=== PATIENT | female | born 1965 | race Caucasian/White ===

== ENCOUNTER 2025-02-05 13:48 | Outpatient (AMB) | payer OTHER, SELFPAY ==
--- NOTE | 2025-02-05 13:49 | MHC.OFFVIS ---
Vital Signs 02/05/25 13:53 Height 5 ft 0.24 in Weight 194 lb BMI 37.6 BP 160/90 H Blood Pressure Location Lt brachial Position Sitting Pulse 67 Pulse Source Pulse Oximeter Pulse Oximetry (%) 97 Oxygen Delivery Method Room Air Intake Visit Reasons: osteoarthritis Intake Note: Patient presents for osteoarthritis Allergies lidocaine Allergy (Intermediate, Verified 02/05/25 13:58) sees white novacain Allergy (Mild, Uncoded 02/05/25 13:57) tachycardia HPI HPI osteoarthritis: Details: In November when she returned from [place], she had increase pain and swelling in hands and lower extremities. Toes were swollen. She saw PCP who orderd testing, which revealed elevated CRP 12 (n<10). heat and ice helped. She used celebrex and tylenol PRN. Resolved. She continues to have left knee pain. She does exercises at home regularly. 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 She has been experiencing chronic left shoulder pain. She is unable to flip pancakes because of left shoulder pain. She had an x-ray of her left shoulder ordered by PCP, which patient reveals calcific tendonitis. Pain has decreased in intensity. She has limited function due to limited range of motion in left shoulder. She takes Celebrex a few times a week. [facility] Medical History (Updated 02/06/25 @ 22:40 by Tyler Kumar MD) Fibromyalgia Calcifying tendinitis Surgical History (Updated 02/05/25 @ 14:00 by Shannon Prieto CMA) Status post repair of lateral meniscus radial tear of left knee Physical Exam Vital Signs: Last Vital Signs Pulse 67 02/05/25 13:53 BP 160/90 H 02/05/25 13:53 Pulse Ox 97 02/05/25 13:53 Oxygen Delivery Method Room Air 02/05/25 13:53 BMI result Body Mass Index 37.6 Const Other: General: Comfortable CVS: RRR Respiratory: clear to auscultation bilaterally. Good respiratory effort Skin: No lesions seen MSK: Tender to palpate left shoulder anteriorly, subacromial region and posteriorly. She has normal range of motion but with discomfort in left shoulder. Normal range of motion of right shoulder. No synovitis of any joints. Tender to palpate left knee along joint line. Crepitus present. Knee flexion 100 degrees left knee. Assessment & Plan Assessment & Plan (1) Osteoarthritis of left knee: Comment: Uncontrolled pain. Rheumatology history: Lidocaine allergy causing palpitations. She had therapeutic arthrocentesis 04/10/2021 with 40 mg Depo-Medrol only and aspiration of 25 cc of synovial fluid with benefit. Failed diclofenac. Naproxen, bracing and PT help. Meniscus repair April 2021. August 2021 diagnostic arthrocentesis white cell count 565 without crystals. October 2021 and November 2022 she had cortisone injection with 1 cc 2% procaine. On Celebrex PRN prescribed by PCP. Code(s): M17.12 - Unilateral primary osteoarthritis, left knee Category: Medical Plan: Nesacaine is being ordered at [facility]. As soon as it is available, patient will be scheduled for cortisone injection with Nesacaine. (2) Calcific tendinitis of left shoulder: Comment: Per patient report. Left shoulder pain is uncontrolled with full range of motion. Code(s): M75.32 - Calcific tendinitis of left shoulder Category: Medical Plan: She agreed to PT I recommend that she use Celebrex 200 mg twice a day scheduled for 2 weeks minimum rather than PRN few times a week X-ray report requested from PCP's office Orders: Orders PT Evaluation and Treatment 02/05/25 M75.32 - Calcific tendinitis of left shoulder Coding Level of Care Code Est Pt Level 4 (09095) Complex EM visit Add On G2211 Diagnoses Osteoarthritis of left knee M17.12 Calcific tendinitis of left shoulder M75.32
[2025-02-05 13:53] VITALS: BP 160/90; PULSE 67; O2SAT 97; BMI 37.6
--- OUTSIDE RECORDS SUMMARY | 2025-02-05 16:22 | XMS_ITS | Referral Summary ---
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 Eustachian tube dysfunction 11/14/2013 Tinnitus 11/14/2013 Allergic rhinitis 11/14/2013 Hyperglycemia 09/13/2013 Hip sprain 07/25/2013 Elevated blood pressure read ing without diagnosis of hypertension 06/05/2013 [address] - Driving (Not Motorcycle 05/22/2013 Myalgia and myositis 05/22/2013 Backache 05/22/2013 Lipoma of skin and subcutaneous tissue 3 Muscle spasm 05/14/2013 Spinal stenosis 05/14/2013 Limb pain 05/14/2013 Hypercholesterolemia 05/14/2013 Anxiety 05/14/2013 Hyperlipidemia 05/14/2013 Lumbago 05/14/2013 Obesity 02/07/2013 Nausea 02/06/2013 Abdominal pain, epigastric 02/06/2013 Abdominal pain of multiple sites 02/06/2013 Fibromyalgia 02/06/2013 Immunizations Immunization Administration Dates Next Due INFLUENZA, SPLIT VIRUS, TRIVALENT, PF 09/13/2013 ,07/03/2010 Pneumococcal Polysaccharide Vaccine, 23 Valent 0 02/07/2013 Tetanus Toxoid, Reduced Diph theria Toxoid, and Acellular Pertussis Vaccine, Adsorbed 02/07/2013 Tuberculin Skin Test; Clive ed Protein Derivative Solution, Intradermal 02/13/2014 Social History Tobacco Use Types Packs/Day Years Used Date Smoking Tobacco: Every Day Comments:: Comments Unknown Sex and Gender Information Value Date Recorded Sex Assigned at Female 08/31/2022 8:48 PM EST Legal Sex Female 12:12 AM EDT Gender Identity Female 08/31/2022 8:48 PM EST Sexual Orientation Straight 08/31/2022 8: 48 PM EST Last Filed Vital Signs Vital Sign Reading Time Taken Comments Blood Pressure 134/90 05/29/2014 4:50 PM EDT Pulse 70 02/13/2014 11:40 AM EDT Temperature 36.5 ??C (97.7 ??F) 02/13/2014 11:40 AM E DT Respiratory Rate - - Oxygen Saturation 98% 02/13/2014 11:40 AM EDT Inhaled Oxygen Concentration - - Weight 78 kg (172 lb) 03/07/2015 12:46 PM EDT Height 154.9 cm (5' 1 ) 03/07/2015 12:46 PM EDT Body Mass Index 32.5 03/07/2015 12:46 PM EDT Plan of Treatment Not on file Procedures * Due to [place] [employer] law, this organization might not be sharing negative HIV tests. Procedure Name Priority Date/Time Associated Diagnosis Comments PAP SMEAR Routine 06/20/2014 3:34 PM EDT MAMMOGRAPHY Routine 04/12/2012 10:55 AM EDT from Last 3 Months or Most Recently Relevant to Health Maintenance Results * Due to [place] [employer] law, this organization might not be sharing negative HIV tests. * PAP SMEAR (06/20/2014 3:34 PM EDT) HM Pap smear NEGATIVE OTHER 06/20/2014 3:34 PM EDT us Historical Conversion Provider HEALTH MAINTENANC E Final Result OTHER * MAMMOGRAPHY (04/12/2012 10:55 AM EDT) Mammogram NEGATIVE [facility] Anatomical Region Laterality Modality Other 04/12/2012 10:5 5 AM EDT Angela River MD HEALTH MAINTENANCE Final Resul t from Last 3 Months or Most Recently Relevant to Health Maintenance Insurance [facility] Care Teams Pinion And Wheel Truer Relationship Specialty Start Date End Date Paul [address] [place], [place] [id number] PCP - General Physician Category Director 08/03/22
== END 2025-02-05 14:49 | disposition home or self-care (01) ==
LOC: HO.RHES 13:48
PROVIDERS: PCP Internal Medicine; Visit Provider Internal Medicine Rheumatology
DX: M17.12 Unilateral primary osteoarthritis, left knee (principal); M75.32 Calcific tendinitis of left shoulder
CPT/HCPCS: 99214; G2211

== ENCOUNTER → 2025-02-05 13:48 | Outpatient (BNVA) | payer OTHER, SELFPAY | PROVIDERS: PCP Internal Medicine; Visit Provider Internal Medicine Rheumatology ==

== ENCOUNTER 2025-02-13 08:51 | Outpatient (AMB) | payer OTHER, SELFPAY ==
[2025-02-13 08:54] VITALS: BP 140/90; PULSE 77; O2SAT 98; BMI 37.3
--- NOTE | 2025-02-13 08:54 | A.OFFVIS_ITS ---
Vital Signs 02/13/25 08:54 Height 5 ft Weight 191 lb BMI 37.3 BP 140/90 H Blood Pressure Location Rt brachial Position Sitting Pulse 77 Pulse Source Pulse Oximeter Pulse Oximetry (%) 98 Oxygen Delivery Method Room Air Intake Visit Reasons: left knee cortisone injection Intake Note: Left knee cortisone injection Accompanied by: Self / Same As Patient Allergies lidocaine Allergy (Severe, Verified 02/13/25 09:14) sees white novacain Allergy (Mild, Uncoded 02/05/25 13:57) tachycardia HPI HPI left knee cortisone injection: Details: Pain is uncontrolled and left knee. Last cortisone injection was in 2020. [facility] Medical History Fibromyalgia Calcifying tendinitis Surgical History Status post repair of lateral meniscus radial tear of left knee Physical Exam Vital Signs: Last Vital Signs Pulse 77 02/13/25 08:54 BP 140/90 H 02/13/25 08:54 Pulse Ox 98 02/13/25 08:54 Oxygen Delivery Method Room Air 02/13/25 08:54 BMI result Body Mass Index 37.3 Const Other: General: Comfortable CVS: RRR Respiratory: clear to auscultation bilaterally. Good respiratory effort Skin: No lesions seen MSK: No synovitis of any joints. Tender to palpate left knee along joint line. Crepitus present. Knee flexion 100 degrees left knee. Office Procedures AMB Joint Injection/Aspiration Joint Injection/Aspiration Details: Left knee joint Prep: site was prepped using aseptic technique Injected: 40 mg of, Kenalog, with 1 mL of 2% Nesacaine Procedure: Informed verbal consent was obtained. The patient tolerated the procedure well. Postprocedure protocol was discussed with patient. Coding 01496 - Large joint Procedure code (CPT) selection complete Office Meds Kenalog 40 mg/mL suspension for injection Performing Provider: Tyler Kumar MD Performing Location: [facility] Rheumatology-[facility] Administered by: Tyler Kumar MD on 02/13/25 09:38 Dose Route Admin Location Dispensed Lot Number Expiration Date [facility] Strain Technician 40 mg intra-articular 1 mL [id number] 03/28/26 [address]-9 A [employer] Total Dispensed Waste 1 mL 0 % Assessment & Plan Assessment & Plan (1) Osteoarthritis of left knee: Comment: Uncontrolled pain. Rheumatology history: Lidocaine allergy causing palpitations. She had therapeutic arthrocentesis 04/10/2021 with 40 mg Depo-Medrol only and aspiration of 25 cc of synovial fluid with benefit. Failed diclofenac. Naproxen, bracing and PT help. Meniscus repair April 2021. August 2021 diagnostic arthrocentesis white cell count 565 without crystals. October 2021 and November 2022 she had cortisone injection with 1 cc 2% procaine. On Celebrex PRN prescribed by PCP. Code(s): M17.12 - Unilateral primary osteoarthritis, left knee Category: Medical Qualifiers: Osteoarthritis type: primary Qualified Code(s): M17.12 - Unilateral primary osteoarthritis, left knee Plan: Patient received cortisone injection with 2% nesacaine this visit (lidocaine allergy) Return to clinic in 3 months (2) Calcific tendinitis of left shoulder: Comment: Per patient report. Left shoulder pain has improved with regular use of Celebrex Code(s): M75.32 - Calcific tendinitis of left shoulder Category: Medical Plan: She agreed to PT for shoulder strengthening Continue Celebrex 200 mg b.i.d. PRN pain X-ray report requested from PCP's office x2 request Orders: Orders AMB Joint Injection/Aspiration Today M17.12 - Unilateral primary osteoarthritis, left knee Coding Level of Care Code Est Pt Level 4 (23314) Complex EM visit Add On G2211 Diagnoses Primary osteoarthritis of left knee M17.12 Osteoarthritis type: primary Calcific tendinitis of left shoulder M75.32 CPT Codes Coding - 21001 Large joint: 65691 - Large joint ([id number])
--- OUTSIDE RECORDS SUMMARY | 2025-02-13 09:24 | XMS_ITS | Referral Summary ---
Author Organization [facility] Address [address] [place] [address] Care Team Providers Care Seam Steamer Name Role Phone GianfrancojohnPaul kraft Primary Care Provider [phone] Allergies Active Allergy Reactions Criticality Noted Date [...] 70 02/13/2014 11:40 AM EDT Temperature 36.5 C (97.7 F) 02/13/2014 11:40 AM EDT Respiratory Rate - - Oxygen Saturation 98% 02/13/2014 11:40 AM EDT Inhaled Oxygen Concentration - - Weight 78 kg (172 lb) 03/07/2015 12:46 PM EDT Height 154.9 cm (5' 1 ) 03/07/2015 12:46 PM EDT Body Mass Index 32.5 03/07/2015 12:46 PM EDT Plan of Treatment Not on file Procedures * Due to [place] [employer] law, this organization might not be sharing negative HIV tests. Procedure Name Priority Date/Time Associated Diagnosis Comments PAP SMEAR Routine 06/20/2014 3:34 PM EDT MAMMOGRAPHY Routine 04/12/2012 10:55 AM EDT from Last 3 Months or Most Recently Relevant to Health Maintenance Results * Due to [place] [employer] law, this organization might not be sharing negative HIV tests. * PAP SMEAR (06/20/2014 3:34 PM EDT) Pap smear NEGATIVE OTHER 06/20/2014 3:34 PM EDT us Historical Conversion Provider HEALTH MAINTENANC E Final Result OTHER * MAMMOGRAPHY (04/12/2012 10:55 AM EDT) Mammogram NEGATIVE [facility] Anatomical Region Laterality Modality Other 04/12/2012 10:5 5 AM EDT Angela River MD HEALTH MAINTENANCE Final Resul t from Last 3 Months or Most Recently Relevant to Health Maintenance Insurance [facility] Care Teams Seam Steamer Relationship Specialty Start Date End Date Paul [address] [place], [place] [phone] PCP - General Physician Controls Operator Molded Goods 08/03/22
== END 2025-02-13 09:45 | disposition home or self-care (01) ==
LOC: HO.RHES 08:52
PROVIDERS: PCP Internal Medicine; Visit Provider Internal Medicine Rheumatology
DX: M75.32 Calcific tendinitis of left shoulder (principal); M17.12 Unilateral primary osteoarthritis, left knee
CPT/HCPCS: 20610; 99214

== ENCOUNTER → 2025-02-13 08:51 | Outpatient (BNVA) | payer OTHER, SELFPAY | PROVIDERS: PCP Internal Medicine; Visit Provider Internal Medicine Rheumatology | DX: M17.12 Unilateral primary osteoarthritis, left knee (principal); M75.32 Calcific tendinitis of left shoulder | CPT/HCPCS: 20610; J2401; J3300 ==

== ENCOUNTER 2025-05-09 11:17 | Outpatient (RCR) | payer OTHER, SELFPAY ==
--- NOTE | 2025-05-09 13:46 | MHC.PT.OD ---
[facility] [place] [facility] [place] [facility] [address] [address] Farheen Maria [address] [facility] [phone] F: [phone] F: [phone] F: [phone] Physical Therapy Daily Note Diagnosis: PT eval and treat; M75.32 Calcific tendinitis of left shoulder signed by Dr. Kumar 02/05/25 Date of Surgery: Date of Evaluation: 04/01/25 Date of Treatment: 05/09/25 Treatments to Date: 7 Cancellations to Date: No Shows to Date: Authorized Visits: Insurance End Date: Precautions/ Contraindications: Subjective: Christy arrives 20 minutes late for appt notes It hurt really bad last night but I didnt do the exercises Pain Score and Location: Objective Flowsheet: Tests & Measures see eval Exercises Pec stretch in doorway x 20 sec hold x 4R, AAROM flexion in supine x 10 sec hold with aide of opposite hand x 10 sec hold with wand x 5R, AAROM cane scaption with wand x 10 sec hold x 5R, SL trunk rotation modified open books due to L shoulder sx x 5R fwd/laterally each side, AAROM PWR! up and PWR twist x 5R each side to improve ROM, AAROM flexion with wand flexion and abduction x 2 set 5R x 10 sec hold, PWR up sit<>stand x 10R with thoracic extension in standing. Education re: goals of backing from bands as she has not been doing ROM exercises- first start wit that- then once pain reduced and flexibility improves will progress to band work Education re: need to do exercises to make gains, educated re: AAROM goals of stretching program first not focusing on strengthening activities, trying to make exercises part of the day and part of the routine Examples morning midday night how to work it in with specifics of reps/sets we completed in the office Sub-occipital release in effort to increase tissue extensibility, education for cervical rotation and cervical side-bending x 4R x 20 sec hold. Held taping this date. Self care HEP program integration into ADLS/IADLS, small amts that are attainable Modalities Deferred ice today Assessment: 05/09/25: Motivational and pep talk to encourage Christy that she can improve her symptoms IF she puts the time and effort into doing her exercises. Despite previous education, instruction, and written HEP sheets she states, Last night it was killing me but I didnt do any exercises. She presents late for her appt today, acknowledges external stressors and factors impacting her time. At start of session she was c/o sharp pain post session she verbalized feeling better post stretching/review of her HEP. We spent some time of breaking down how she can adapt and modify her behavior to allow for time to complete the necessary goals. She was advised to trial an I HEP for the next two weeks to allow her to assess her progress and after that can come back to work on advancement. She will be seeing Dr. Kumar on 05/21/25. She was educated in the goal of AAROM stretching program first and then progression of periscap/RTC/postural strengthening tasks. SHe was previously given bands to work on this but has not been doing. She was encouraged to ice her shoulder should sx she have pain in the evening. She was educated that her exercises should be within that painfree zone. Her AROM is functional and improving. She c/o muscular tightness of the left upper trap. [id number]: Christy is doing better, was challenged with resisted theraband *yellow.* She was trialed with some gentle sub-occipital release in effort to ease headache sx which she expressed was better post session. 05/03/25: Erythema response persists with HG IASTM to L UT HG #8 strumming response. We discussed benefit in postural stab/resisted exercises at home and frequent chest/pec stretching. Discussed AAROM wall slides vs neil for home option. Pt notes improvement in ROM, mm tension in LUT/scap persists. Verbalizes stress of being a caregiver and lack of making time for herself. Education spent re: ways to work HEP program into her routine to aide in completion. 04/30/25: Christy is doing better with respect of L shoulder sx, ongoing tight L UT. She notes ordering a theracane for home/self care management. Challenged L>R shoulder with YTB for ext>ER>rows. 04/26/25: Pt introduced to AAROM shoulder neil for shoulder flexion and abduction this date with good tolerance. Issued RTB for HEP program. Pt with erythema response for L UT musculature. 04/15/25: Christy presents to the office exhibiting antalgic gait (R LE), tenderness noted R medial achilles insertion, mild edema noted distal achlles/supra ankkle. Denies trauma states, I need to call my doctor can I pick your brain about this? Pt given some insight to sx, handout for achilles tendoniitis, relief with some stretches and education provided. Reports lack of compliance with HEP sheets for L shoulder, I lost the sheets. Pt encouraged to make time for herself/exercises. AAROM flexion and abduction improved since initial eval. Pt to call PCP to obtain script/ add on R achilles for treatment. 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 Kumar 02/05/25. Pt exhibits decreased range of motion, impaired strength, and decreased functional mobility, notes intolerance for sleeping on L side, wakes at night due to sx. PMH significant for L knee pain (hx meniscal surgery and fibromyalgia). Sometimes she is unable to don her bra due to sx of pain in her L shoulder. She notes sedentary activity in recent months, would like to establish a self care program of what she can do to ease her sx. Pt willing and eager to attend PT 2x/week x 4 weeks *has been taking celebrex at baseline for her knee pain. Pt notes just came back from trip to [place], shoulder and knee have been sore from all the walking. (Notes needing to use a scooter the last few days due to severity of knee pain). Presents to PT with no AD. PT Plan: Progress scapular stab, AAROM/ pain managment, postural stretching Add shoulder rows/ER/ext, postural strength periscap next session May benefit from NUSTEP for total body dynamic warmup Short Term Goals: 1. AAROM L shoulder flexion to 160. 2. AAROM L shoulder IR to midline L3. 3. AAROM L shoulder ER to C7. 4. Strength ER to 4/5 L shoulder. 5. Strength IR to 4/5 L shoulder 6. Strengthen triceps 4/5 L shoulder. Shift Commander Goals: 1. Demonstrate good carryover of HEP and self care management skills with program. 2. Strengthen L triceps 5/5. 3. L periscap 12/31. 4. Don clothing MOD I with sx <3/10 L shoulder. 5. AROM L shoulder functional with pain <3/10 all planes. 6. Improvement in SPADI score by 25%. Electronically signed by: Lida Pacheco PT, DPT
== END 2025-05-23 15:22 | disposition home or self-care (01) ==
LOC: HO.PTS 11:17
PROVIDERS: Visit Provider Internal Medicine Rheumatology
DX: M75.32 Calcific tendinitis of left shoulder (principal)
CPT/HCPCS: 97110; 97140; 97161; 97530

== ENCOUNTER 2025-05-21 08:26 | Outpatient (AMB) | payer OTHER, SELFPAY ==
[2025-05-21 08:30] VITALS: BP 130/80; PULSE 78; O2SAT 100; BMI 37.9
--- NOTE | 2025-05-21 08:30 | A.OFFVIS_ITS ---
Vital Signs 05/21/25 08:30 Height 5 ft Weight 194 lb 0.108 oz BMI 37.9 BP 130/80 Blood Pressure Location Lt brachial Position Sitting Pulse 78 Pulse Source Pulse Oximeter Pulse Oximetry (%) 100 Oxygen Delivery Method Room Air Intake Visit Reasons: 1 month Intake Note: Patient presents for osteoarthritis. Accompanied by: Self / Same As Patient Allergies lidocaine Allergy (Severe, Verified 05/21/25 08:34) sees white novacain Allergy (Mild, Uncoded 02/05/25 13:57) tachycardia HPI HPI 1 month: Details: Last cortisone injection lasted 2 weeks. Uses tylenol x2 with celebrex with benefit PRN. She uses Celebrex every other day. Celebrex is prescribed from PCP. She uses a knee brace as needed. She continues to remain as active as she can especially with her grandchildren. [facility] Medical History Fibromyalgia Calcifying tendinitis Surgical History Status post repair of lateral meniscus radial tear of left knee Physical Exam Vital Signs: Last Vital Signs Pulse 78 05/21/25 08:30 BP 130/80 05/21/25 08:30 Pulse Ox 100 05/21/25 08:30 Oxygen Delivery Method Room Air 05/21/25 08:30 BMI result Body Mass Index 37.9 Const Other: General: Comfortable Skin: No lesions seen MSK: No synovitis of any joints. Tender to palpate left knee along joint line with mild effusion. Crepitus present. Knee flexion 100 degrees left knee. Assessment & Plan Assessment & Plan (1) Osteoarthritis of left knee: Comment: Uncontrolled pain. We discussed options. She would like to try cortisone injection with Nesacaine medial approach. If benefit is not long lasting, I will then start PA process for Euflexxa. We need to order Nesacaine for patient. Rheumatology history: Lidocaine allergy causing palpitations. She had therapeutic arthrocentesis 04/10/2021 with 40 mg Depo-Medrol only and aspiration of 25 cc of synovial fluid with benefit. Failed diclofenac. Naproxen, bracing and PT help. Meniscus repair April 2021. August 2021 diagnostic arthrocentesis white cell count 565 without crystals. October 2021 and November 2022 she had cortisone injection with 1 cc 2% procaine. On Celebrex PRN prescribed by PCP. 01/2025 cortisone injection with 2% nesacaine. Code(s): M17.12 - Unilateral primary osteoarthritis, left knee Category: Medical Qualifiers: Osteoarthritis type: primary Qualified Code(s): M17.12 - Unilateral primary osteoarthritis, left knee Plan: Patient will be scheduled next week for cortisone injection with 2% Nesacaine Coding Level of Care Code Est Pt Level 3 (90791) Complex EM visit Add On G2211 Diagnoses Primary osteoarthritis of left knee M17.12 Osteoarthritis type: primary
== END 2025-05-21 09:07 | disposition home or self-care (01) ==
LOC: HO.RHES 08:27
PROVIDERS: PCP Internal Medicine; Visit Provider Internal Medicine Rheumatology
DX: M17.12 Unilateral primary osteoarthritis, left knee (principal)
CPT/HCPCS: 99213; G2211

== ENCOUNTER 2025-05-28 14:23 | Outpatient (AMB) | payer OTHER, SELFPAY ==
--- NOTE | 2025-05-28 14:42 | MHC.OFFVIS ---
Vital Signs 05/28/25 14:43 Height 5 ft Weight 194 lb 10.691 oz BMI 38.0 BP 140/80 H Blood Pressure Location Lt brachial Position Sitting Pulse 58 Pulse Source Pulse Oximeter Pulse Oximetry (%) 98 Oxygen Delivery Method Room Air Intake Visit Reasons: left knee cortisone injection with nesacaine Intake Note: Left knee knee cortisone inj. Accompanied by: Self / Same As Patient Allergies lidocaine Allergy (Severe, Verified 05/21/25 08:34) sees white novacain Allergy (Mild, Uncoded 02/05/25 13:57) tachycardia HPI HPI left knee cortisone injection with nesacaine: Details: Patient is here for left knee cortisone injection. [facility] Medical History Fibromyalgia Calcifying tendinitis Surgical History Status post repair of lateral meniscus radial tear of left knee Physical Exam Vital Signs: Last Vital Signs Pulse 58 05/28/25 14:43 BP 140/80 H 05/28/25 14:43 Pulse Ox 98 05/28/25 14:43 Oxygen Delivery Method Room Air 05/28/25 14:43 BMI result Body Mass Index 38.0 Const Other: General: Comfortable Skin: No lesions seen MSK: No synovitis of any joints. Tender to palpate left knee along joint line with mild effusion. Warm. Crepitus present. Knee flexion 100 degrees left knee. Office Procedures AMB Joint Injection/Aspiration Joint Injection/Aspiration Details: Left knee joint Prep: site was prepped using aseptic technique Injected: 40 mg of, Kenalog, with 1 mL of and 2% Nesacaine Procedure: Informed verbal consent was obtained. The patient tolerated the procedure well. Postprocedure protocol was discussed with patient. Coding 88164 - Large joint Procedure code (CPT) selection complete Office Meds chloroprocaine (PF) 20 mg/mL (2 %) injection solution Performing Provider: Tyler Kumar MD Performing Location: [facility] [place] Rheumatology-[facility] Administered by: Shirley Medina RN on 05/28/25 14:52 Dose Route Admin Location Dispensed Lot Number Expiration Date [employer] 1 mL Infiltration 20 mL [id number] 06/28/26 81318-851-32 [employer] Total Dispensed Waste 20 mL 95 % Kenalog 40 mg/mL suspension for injection Performing Provider: Tyler Kumar MD Performing Location: [facility] [place] Rhe[facility]ology-[facility] Administered by: Shirley Medina RN on 05/28/25 14:52 Dose Route Admin Location Dispensed Lot Number Expiration Date [employer] 40 mg intra-articular 1 mL [id number] 01/26/27 [address]-8 [employer] Total Dispensed Waste 1 mL 0 % Assessment & Plan Assessment & Plan (1) Osteoarthritis of left knee: Comment: Uncontrolled pain. We discussed options. She would like to try cortisone injection with Nesacaine medial approach. If benefit is not long lasting, I will then start PA process for Euflexxa. Rheumatology history: Lidocaine allergy causing palpitations. She had therapeutic arthrocentesis 04/10/2021 with 40 mg Depo-Medrol only and aspiration of 25 cc of synovial fluid with benefit. Failed diclofenac. Naproxen, bracing and PT help. Meniscus repair April 2021. August 2021 diagnostic arthrocentesis white cell count 565 without crystals. October 2021 and November 2022 she had cortisone injection with 1 cc 2% procaine. On Celebrex PRN prescribed by PCP. 01/2025 cortisone injection with 2% nesacaine. Code(s): M17.12 - Unilateral primary osteoarthritis, left knee Category: Medical Qualifiers: Osteoarthritis type: primary Qualified Code(s): M17.12 - Unilateral primary osteoarthritis, left knee Plan: Patient received cortisone injection with 2% Nesacaine Return to clinic in 6 months Orders: Orders AMB Joint Injection/Aspiration Today M17.12 - Unilateral primary osteoarthritis, left knee Coding Level of Care Code Est Pt Level 3 (68421) Complex EM visit Add On G2211 Diagnoses Primary osteoarthritis of left knee M17.12 Osteoarthritis type: primary CPT Codes Coding - Large joint: 83558 - Large joint ([id number])
[2025-05-28 14:43] VITALS: BP 140/80; PULSE 58; O2SAT 98; BMI 38.0
== END 2025-05-28 15:12 | disposition home or self-care (01) ==
LOC: HO.RHES 14:24
PROVIDERS: PCP Internal Medicine; Visit Provider Internal Medicine Rheumatology
DX: M17.12 Unilateral primary osteoarthritis, left knee (principal)
CPT/HCPCS: 20610; 99213

== ENCOUNTER → 2025-05-28 14:23 | Outpatient (BNVA) | payer OTHER, SELFPAY | PROVIDERS: PCP Internal Medicine; Visit Provider Internal Medicine Rheumatology | DX: M17.12 Unilateral primary osteoarthritis, left knee (principal) | CPT/HCPCS: 20610; J2401; J3301 ==